=== PATIENT | female | born 1935 | race Caucasian/White ===

== ENCOUNTER 2022-11-26 10:41 | Emergency (ER) | payer MEDICARE, OTHER ==
[2022-11-26] MEDS ORDERED: Sodium Chloride 0.9% 10 ML Syringe FLUSH PRN (10:49)
[2022-11-26 11:01] LABS: BASOPHILS ABSOLUTE AUTO 0.04 K/uL (0.00-0.10); BASOPHILS PERCENT AUTO 0.6 % (0.1-1.3); EOSINOPHILS ABSOLUTE AUTO 0.12 K/uL (0.00-0.40); EOSINOPHILS PERCENT AUTO 1.7 % (0.0-5.4); HEMATOCRIT 43.7 % (34.3-46.0); HEMOGLOBIN 15.3 g/dL (11.2-15.5); IMMATURE GRAN ABSOLUTE AUTO 0.05 K/uL (0.00-0.23); IMMATURE GRAN PERCENT AUTO 0.7 % (0.0-0.7); LYMPHOCYTES ABSOLUTE AUTO 1.99 K/uL (0.8-3.3); LYMPHOCYTES PERCENT AUTO 28.2 % (11.4-47.7); MEAN CORPUSCULAR HEMOGLOBIN 28.6 pg (31.6-35.5); MEAN CORPUSCULAR VOLUME 81.7 fL (81.4-99.0); MONOCYTES ABSOLUTE AUTO 0.92 K/uL (0.20-0.90); NEUTROPHILS ABSOLUTE AUTO 3.94 K/uL (1.0-7.6); NEUTROPHILS PERCENT AUTO 55.8 % (40.0-78.1); PLATELET COUNT,PLT 147 K/uL (130-375); RED BLOOD CELL COUNT 5.35 M/uL (3.77-5.24); WHITE BLOOD CELL COUNT,WBC 7.1 K/uL (3.2-11.0)
[2022-11-26 11:14] LABS: PROTHROMBIN TIME 9.7 sec (9.2-10.6); PTT,PARTIAL THROMBOPLSTIN TIME 18.3 sec (21.8-27.3)
[2022-11-26 11:17] LABS: ANION GAP 12.5 mmol/L (5.0-14.0); CALCIUM 9.1 mg/dL (8.5-10.1); CREATININE 0.9 mg/dL (0.6-1.0); EST CRCL DRUG DOSING (CG) 40.45 mL/min; POTASSIUM,K 3.9 mmol/L (3.6-5.2); TROPONIN I HIGH SENSITIVITY 5.1 pg/mL (<=60.3)
[2022-11-26 11:24] LABS: MAGNESIUM 2.3 mg/dL (1.8-2.4); TSH ULTRASENSITIVE 2.878 uIU/mL (0.358-3.740)
[2022-11-26] MEDS ORDERED: Aspirin 81 MG Tab.Chew PO ONE (12:18)
[2022-11-26] MEDS ORDERED: Dextrose 5%-0.9% NaCl 1,000 ML IV SCH (13:00)
== END 2022-11-26 15:10 ==
LOC: JP.ED 10:41
DX: R13.10 Dysphagia, unspecified (principal); I48.91 Unspecified atrial fibrillation; R55 Syncope and collapse; R20.0 Anesthesia of skin; R68.84 Jaw pain; I10 Essential (primary) hypertension
CPT/HCPCS: 36415; 70450; 80048; 82947; 83735; 84443; 84484; 85025; 85610; 85730; 93005; 96360; 96361; 99285; A9270; U0002